=== PATIENT | male | born 1970 | race African-American/Black ===

== ENCOUNTER 2019-01-27 05:34 | Emergency (ER) | payer MEDICAID ==
[~2019-01-27] VITALS: Ht 190.5 cm; Wt 92.0 kg
[~2019-01-27 05:34] MED LIST: PSEU30TA29
[2019-01-27 05:44] VITALS: BP 153/106
== END 2019-01-27 07:56 | disposition home or self-care (01) ==
LOC: ER 05:34
DX: K13.0 Diseases of lips (principal)
CPT/HCPCS: 99283

== ENCOUNTER 2022-04-21 09:36 | Emergency (ER) | payer MEDICAID ==
[~2022-04-21] VITALS: Ht 190.5 cm; Wt 83.0 kg
[2022-04-21 09:40] VITALS: BP 139/109
[2022-04-21] MEDS ORDERED: CARBAMIDE PEROXIDE 6.5% OTIC SOLN 15ML RIGHT EAR ONE (10:00)
[2022-04-21] MEDS ORDERED: OFLO5DRO4 RIGHT EAR (12:12)
== END 2022-04-21 13:03 | disposition home or self-care (01) ==
LOC: ER 09:36
DX: H61.21 Impacted cerumen, right ear (principal); F41.9 Anxiety disorder, unspecified; J45.909 Unspecified asthma, uncomplicated; K21.9 Gastro-esophageal reflux disease without esophagitis; Z87.01 Personal history of pneumonia (recurrent); Z87.11 Personal history of peptic ulcer disease; Z98.890 Other specified postprocedural states
CPT/HCPCS: 99282

== ENCOUNTER 2023-09-30 09:34 | Emergency (ER) | payer MEDICAID ==
[~2023-09-30] VITALS: Ht 185.4 cm; Wt 90.0 kg
[~2023-09-30 09:34] MED LIST changes: +OFLO5DRO4 RIGHT EAR
[2023-09-30 09:37] VITALS: O2SAT 99
[2023-09-30] MEDS ORDERED: NAPROXEN 375MG TABLET PO ONE (10:45)
[2023-09-30] MEDS ORDERED: ACETAMINOPHEN 325MG TABLET PO ONE (10:45)
[2023-09-30] MEDS ORDERED: DEXAMETHASONE 4MG TABLET PO ONE (10:45)
[2023-09-30] MEDS ORDERED: HYDR-4001 MT (10:47)
[2023-09-30] MEDS ORDERED: AMOX1TAB16 MT (10:47)
[2023-09-30] MEDS ORDERED: CHLO473M2 MT (10:47)
[2023-09-30] MEDS ORDERED: NAPR-1176 MT (10:47)
[2023-09-30] MEDS ORDERED: ACETAMINOPHEN 500MG TABLET PO NR (11:15)
[2023-09-30 11:24] VITALS: BP 135/89; PULSE 99; RESP 16; TEMP 98.9
[2023-09-30] MEDS ORDERED: NAPROXEN 250MG TABLET PO NR (11:30)
== END 2023-09-30 11:26 | disposition home or self-care (01) ==
LOC: ER 09:34
DX: K08.89 Other specified disorders of teeth and supporting structures (principal); F12.10 Cannabis abuse, uncomplicated; J45.909 Unspecified asthma, uncomplicated; Z98.890 Other specified postprocedural states
CPT/HCPCS: 99284; J8540